=== PATIENT | male | born 1965 | race Caucasian/White ===

== ENCOUNTER 2017-05-29 13:31 | Outpatient (CLI) | payer OTHER ==
[2017-05-29 14:30] LABS: Hemoglobin 14.8 g/dL (14.0-18.0); Mean Corpuscular HGB CONC 34.2 g/dL (32.0-36.0); Mean Corpuscular Hemoglobin 31.7 pg (27.0-31.0); Mean Corpuscular Volume 92.7 fl (80.0-94.0); Mean Platelet Volume 6.8 fL (7.4-10.4); Platelet Count 259 thou/uL (130-400); Red Blood Cell (RBC) Count 4.65 mill/uL (4.70-6.10); White Blood Cell (WBC) Count 5.4 thou/uL (4.8-10.8)
[2017-05-29 14:37] LABS: Bilirubin Negative (Negative); Blood, Urine Negative (Negative); Clarity CLEAR (Clear); Glucose, Urine (Dipstick) Negative (Negative); Leukocyte Negative (Negative); Nitrite Negative (Negative); Protein, Urine (Dipstick) Negative (Neg-Trace); Specific Gravity, Urine 1.025 (1.002-1.036); Urobilinogen 0.2 mg/dL (0.2-1.0)
[2017-05-29 14:43] LABS: Bacteria/HPF None Seen HPF (None Seen); Hyaline Casts/LPF 0-3 HYALINE CAST LPF (0-3 Hyaline); RBC/HPF 0-3 HPF (0-3); Squamous Epithelial None Seen HPF (0-3); WBC/HPF 0-3 HPF (0-3)
== END 2017-05-29 13:32 | disposition home or self-care (01) ==
LOC: LABBT 13:31
PROVIDERS: ATTEND Orthopaedic Surgery
DX: Z01.812 Encounter for preprocedural laboratory examination (principal); S83.241D Other tear of medial meniscus, current injury, right knee, subsequent encounter
CPT/HCPCS: 81001; 85027

== ENCOUNTER 2017-05-30 05:46 | Day surgery (SDC) | payer OTHER ==
[2017-05-30] MEDS ORDERED: CEFAZOLIN/Water 2 GM/20 ML SYRINGE ONE (06:33)
[2017-05-30] MEDS ORDERED: Bupivacaine/Epinephrine 0.25% 30 ML VIAL ONE (06:38)
[2017-05-30] MEDS ORDERED: Lidocaine 1% (PF) 30 ML VIAL ONE (06:41)
[2017-05-30] MEDS ORDERED: Fentanyl 100 MCG/2 ML VIAL ONE (07:51)
--- NOTE | 2017-05-30 12:39 | OP ---
DATE OF PROCEDURE: 05/30/2017 PREOPERATIVE DIAGNOSES: Right posterior body posteromedial meniscus tear, reactive changes medial femoral condyle without collapse, intact collateral ligaments. POSTOPERATIVE DIAGNOSES: Right posterior body and posterior horn root flap tears without full thickness cartilage defect, grade II changes noted medial femoral condyle with intact ACL, PCL, lateral meniscus, patellofemoral articulation. PROCEDURE: Medial meniscus debridement/meniscectomy STAFF: Nuno Rodriguez M.D. ANESTHESIA: Faustino. The patient received LMA. ESTIMATED BLOOD LOSS: 20 mL. TOURNIQUET TIME: 27 minutes at 300 mmHg. ANTIBIOTICS: Ancef 2 grams. COMPLICATIONS: None. IMPLANTS: None. HISTORY OF PRESENT ILLNESS: Mr. 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 The pain localized, the pain can be as high as 8/10, increases tears, no locking. The patient utilized rest, injections with minimal relief. The patient presents pain with twisting, he decided to proceed with surgery. The patient had MRI evidence of a right knee medial meniscus tear and had some changes medial femoral condyle without obvious subchondral collapse. The patient had no full thickness cartilage defect noted. I discussed with patient the risks and benefits of the right knee meniscectomy to include pain, scar, bleeding, infection, damage to vital to vital structures, nerves, arteries, tendon, bone cartilage decreased range of motion or strength, continued pain despite surgical intervention, failure of procedure, arthritis. The patient understood the risks and benefits of procedure and elected to proceed. PROCEDURE IN DETAIL: Time out was performed designating the patient's right lower extremity as the operative site based on sight, consents, markings. After completion of timeout, the patient's right lower extremity was prepped and draped in sterile fashion. Tourniquet was brought up and left up for a total of 28 minutes. The patient had an anterior lateral portal placed as well as an anteromedial, I visualized under fluoroscopic guidance and with spinal needle placed my anteromedial portal, and went to excise the fat pad, exposed the ACL, saw the ACL and PCL intact. I felt for my articulation, had no full thickness defect. I did see the flap tear at the root of the posterior horn in the notch kind of flopped up as well as I went and looked in my medial and lateral gutters to look for loose bodies, saw the flap tear of the medial body, it was flipped up. I looked at my lateral meniscus, it was stable, saw no full thickness cartilage defects to the lateral compartment or patellofemoral compartment, I moved to the medial compartment. There was maybe some grade I- II changes. I cut the medial and the body with scissors and I removed a section of the cartilage. I then worked on the patient's root, debriding with a shaver and biters to a stable remnant. I did not probe the entire medial and lateral meniscus, did not find an unstable segment after I debrided off the medial flap tear. I then being happy with my completion of my debridement of my medial meniscus of both flaps, I then washed and closed. I injected 25 mL of lidocaine plain intraarticular before the procedure started. I then let the tourniquet down after I closed with 3-0 nylon the medial and lateral portals. The patient will be weightbearing as tolerated. He may require crutches for ambulation. The patient will follow up with me in 2 weeks for evaluation. The patient's outlook is guarded. LAZARO
[2017-05-30] MEDS ORDERED: Ondansetron HCl/PF 4 MG/2 ML Vial ONE (15:32)
[2017-05-30] MEDS ORDERED: Dexamethasone 20 MG/5 ML VIAL ONE (15:32)
[2017-05-30] MEDS ORDERED: Ketorolac Tromethamine 30 MG/ML VIAL ONE (15:32)
[2017-05-30] MEDS ORDERED: Glycopyrrolate 0.2 MG/ML 5 ML SYRINGE ONE (15:32)
== END 2017-05-30 10:31 | disposition home or self-care (01) ==
LOC: SDC 05:46
PROVIDERS: ATTEND Orthopaedic Surgery
PROC: 0SBC4ZZ Excision of Right Knee Joint, Percutaneous Endoscopic Approach (ICD-10-PCS; principal; 2017-05-30)
DX: S83.241A Other tear of medial meniscus, current injury, right knee, initial encounter (principal); K21.9 Gastro-esophageal reflux disease without esophagitis; M95.8 Other specified acquired deformities of musculoskeletal system; G43.909 Migraine, unspecified, not intractable, without status migrainosus; Z79.899 Other long term (current) drug therapy; Z98.890 Other specified postprocedural states
CPT/HCPCS: G8978-GP-CI; G8979-GP-CI; G8980-GP-CI; J1100; J1885; J2001; J2405; J3010